=== PATIENT | female | born 1995 | race Caucasian/White ===

== ENCOUNTER 2018-11-15 13:14 | Emergency (ER) | payer BC ==
[~2018-11-15] VITALS: Ht 157.5 cm; Wt 51.3 kg
[2018-11-15] MEDS ORDERED: WELLBUTRIN XL150 MG PO (13:21)
[2018-11-15] MEDS ORDERED: PRILOSEC OTC20 MG PO (13:22)
[2018-11-15] MEDS ORDERED: SPRINTEC1 EACH PO (13:22)
[2018-11-15] MEDS ORDERED: AMOXICILLIN500 M1 PO (14:05)
[2018-11-15 14:20] VITALS: BP 132/78
--- NOTE | 2018-11-15 16:20 | EKG ---
[place] [address] ELECTROCARDIOGRAM REPORT Name: SETH JIMÉNEZ Room: [facility]#: [id number] Admission: 11/15/18 Attend Phys: Discharge: 11/15/18 Date of : [birth year] Report #: [id number] THIS REPORT FOR: //name// [facility] ED Test Date: 2018-11-15 Test Time: 13:20:07 Pat Name: SETH JIMÉNEZ Department: Room: Gender: F Job Lithographer: : 1995 Requested By: Angela Staley Order Number: [id number] Garrick MD: Ethan Allan Measurements Intervals [place] Rate: 105 P: 50 NM: 136 QRS: 51 QRSD: 95 T: -9 QT: 383 QTc: 507 Interpretive Statements Sinus tachycardia RSR' in V1 or V2, normal variant Nonspecific repol abnormality, diffuse leads Prolonged QT interval No previous ECG available for comparison Electronically Signed On 11-15-2018 16:20:03 CDT by Ethan Allan [email or web address] <ELECTRONICALLY SIGNED> By: Ethan Allan MD, [facility] 11/15/18 1620 1320 Ethan Allan MD, FAC /EPI
== END 2018-11-15 14:24 | disposition home or self-care (01) ==
LOC: M.ERS 13:14
DX: J03.90 Acute tonsillitis, unspecified (principal); K21.9 Gastro-esophageal reflux disease without esophagitis; F41.9 Anxiety disorder, unspecified